=== PATIENT | female | born 1960 | race Caucasian/White ===

== ENCOUNTER 2020-05-06 08:08 | Inpatient (IN) | payer MEDICAID ==
[~2020-05-06] VITALS: Ht 160 cm; Wt 75.0 kg
[~2020-05-06 08:08] MED LIST: ALBU8HFA PO; AMIT-189 PO; OMEP20CA15 PO; STOOL SOFTNER
[2020-05-06] MEDS ORDERED: CefTRIAXone 2gm/D5W 50ml 50 ML IV ONE (08:55)
[2020-05-06] MEDS ORDERED: normal saline 1000ML IV soln IV ONE (08:55)
[2020-05-06] MEDS ORDERED: CefTRIAXone inj 2,000 MG in normal saline 100ml IV soln 100 ML IV ONE (09:05)
[2020-05-06 09:16] LABS: BASOPHILS % (AUTO) 0.2 % (0-1); EOSINOPHILS % (AUTO) 0.3 % (0-6); HEMATOCRIT 37.7 % (35.0-45.0); HEMOGLOBIN 12.4 g/dl (12.0-16.0); LYMPHOCYTES # (AUTO) 0.3 X10'3 (1.1-4.8); LYMPHOCYTES % (AUTO) 3.3 % (21-51); MEAN CORPUSCULAR HEMOGLOBIN 27.4 PG (27.0-31.0); MEAN CORPUSCULAR HGB CONC 32.8 g/dL (33.0-36.5); MEAN CORPUSCULAR VOLUME 83.6 FL (78-98); MEAN PLATELET VOLUME 6.5 FL (7.4-10.4); MONOCYTES % (AUTO) 0.2 % (2-12); NEUTROPHILS # (AUTO) 8.3 X10'3 (1.8-7.7); PLATELET COUNT 554 X10'3 (140-440); RED BLOOD COUNT 4.51 X10'6 (4.20-5.60); WHITE BLOOD COUNT 8.6 X10'3 (4.5-11.0)
[2020-05-06 09:44] LABS: ALANINE AMINOTRANSFERASE 70 U/L (12-78); ALBUMIN 3.4 G/DL (3.4-5.0); ALBUMIN/GLOBULIN RATIO 0.7 (1.1-1.5); ALKALINE PHOSPHATASE 217 IU/L (46-116); ANION GAP 13 (8-16); ASPARTATE AMINO TRANSFERASE 68 U/L (10-37); BILIRUBIN,TOTAL 0.6 MG/DL (0.1-1.0); BLOOD UREA NITROGEN 13 MG/DL (7-18); BUN/CREATININE RATIO 8.8 (6.6-38.0); CALCIUM 9.5 MG/DL (8.5-10.1); CHLORIDE 101 MMOL/L (99-107); CREATININE 1.48 MG/DL (0.40-0.90); GLUCOSE 107 MG/DL (70-104); POTASSIUM 3.4 MMOL/L (3.5-5.1); SODIUM 137 MMOL/L (135-145); TOTAL CARBON DIOXIDE 22.6 MMOL/L (24-32); TOTAL PROTEIN 8.6 G/DL (6.4-8.2); eGFR 36 ML/MIN
[2020-05-06] MEDS ORDERED: iohexol 300mg/ml 100ml inj. ONE (10:22)
[2020-05-06 11:04] LABS: CLARITY,URINE SLIGHTLY CLOUDY (Clear); COLOR,URINE YELLOW (Yellow); GLUCOSE, URINE NEGATIVE (Neg); KETONES,URINE TRACE mg/dl (Neg); LEUKOCYTE ESTERASE ,URINE MODERATE (Neg); NITRITES, URINE NEGATIVE (Neg); OCCULT BLOOD,URINE NEGATIVE (Neg); PH,URINE 5.5 (4.8-8.0); PROTEIN,URINE 30 mg/dl (Neg); UROBILINOGEN,URINE 0.2 E.U/dL (0.2-1.0)
[2020-05-06 11:09] LABS: UA COLLECTION TYPE VOIDED
[2020-05-06 11:10] LABS: URINE HCG NEGATIVE (NEG)
[2020-05-06] MEDS ORDERED: ketorolac tromethamine 15mg/ml inj. IV ONE ×2 (11:10→23:40)
[2020-05-06] MEDS ORDERED: acetaminophen 325mg tablet PO ONE (11:10)
[2020-05-06 11:11] LABS: BACTERIA,URINE FEW /HPF (Neg); MUCUS STRANDS FEW /LPF (Neg); RBC,URINE 0-2 /HPF (0-2); SQUAMOUS EPITHELIAL CELL,UR MANY /LPF (FEW); WBC,URINE 20-30 /HPF (0-4)
[2020-05-06 12:11] LABS: URINE AMPHETAMINE SCREEN NEGATIVE (Neg); URINE BARBITUATE SCREEN NEGATIVE (Neg); URINE BENZODIAZEPINES SCREEN NEGATIVE (Neg); URINE CANNABINOID SCREEN NEGATIVE (Neg); URINE COCAINE SCREEN NEGATIVE (Neg); URINE METHADONE SCREEN NEGATIVE (Neg); URINE OPIATE SCREEN NEGATIVE (Neg); URINE PHENCYCLIDINE SCREEN NEGATIVE (Neg)
[2020-05-06] MEDS ORDERED: CETI-90 PO (12:13)
[2020-05-06] MEDS ORDERED: FLUT100D2 IH (12:13)
[2020-05-06] MEDS ORDERED: FLUT16SP2 BOTHNARES (12:13)
[2020-05-06] MEDS ORDERED: AMIT-189 PO (12:13)
[2020-05-06] MEDS ORDERED: magnesium 2GM in 50ml NS 50 ML IV PRN (13:05)
[2020-05-06] MEDS ORDERED: acetaminophen 325mg tablet PO PRN ×2 (13:05)
[2020-05-06] MEDS ORDERED: potassium Cl 20 mEq SR tablet PO PRN ×2 (13:05)
[2020-05-06] MEDS ORDERED: magnesium 4gm in 100ml NS 100 ML IV PRN (13:05)
[2020-05-06] MEDS ORDERED: magnesium Cl slow-release 64mg tablet PO PRN (13:05)
[2020-05-06] MEDS ORDERED: HYDROcodone/acetaminophen 10/325mg tab PO PRN (13:05)
[2020-05-06] MEDS ORDERED: ondansetron/PF 4mg/2ml inj IV PRN (13:05)
[2020-05-06] MEDS ORDERED: potassium CL 10mEq/100ml bag 100 ML IV PRN ×2 (13:05)
[2020-05-06] MEDS ORDERED: magnesium hydroxide 30ml (MOM) UD suspension PO PRN (13:05)
[2020-05-06] MEDS ORDERED: bisacodyl 10mg suppository rectal RC PRN (13:05)
[2020-05-06] MEDS ORDERED: mag hydrox/Alum hydrox/simeth 30ml oral suspension PO PRN (13:05)
[2020-05-06] MEDS ORDERED: HYDROcodone/acetaminophen 5mg/325mg tablet PO PRN (13:05)
[2020-05-06] MEDS ORDERED: HYDROmorphone inj. 0.5 MG/0.5 ML DISP.SYRIN IV PRN (13:05)
[2020-05-06] MEDS ORDERED: HYDROmorphone 1 mg/ml syringe IV PRN (13:05)
[2020-05-06] MEDS ORDERED: vancomycin/NS 1 GM ADD-VANTAGE 250 ML X 1 DOSE IV SCH (13:16)
--- NOTE | 2020-05-06 13:23 | NUR ---
Attempted to call report to [facility], primary rn and set up and charger on lunch; relief charge unable/willing to take report. Primary RN due back in ~ 10 minutes. DEVIN Wayne notified.
--- NOTE | 2020-05-06 13:36 | NUR ---
2nd attempt to call report. Primary RN and flight engineer manager still on lunch; none available to take report. DEVIN aprised.
[2020-05-06 14:25] VITALS: BP 102/62
[2020-05-06] MEDS: normal saline 1000ml 1,000 ML IV SCH ×2 (14:29→23:34)
[2020-05-06] MEDS ORDERED: UMEC1DIS PO (14:48)
[2020-05-06] MEDS: heparin, porcine 5000 units/ml vial SQ SCH ×2 (15:47→23:47)
[2020-05-06] MEDS: fluticasone nasal spray 16GM bottle NS SCH (16:56)
[2020-05-06] MEDS: Umeclidinium Brm/Vilanterol Tr (Anoro Ellipta 62.5-25 Mcg INH PO SCH (17:04)
[2020-05-06 18:00] VITALS: BP 123/72
--- NOTE | 2020-05-06 18:11 | NUR ---
Problems reprioritized. Patient report given, questions answered & plan of care reviewed with Merlin RICE.
[2020-05-06] MEDS: K and/or MAG REPLACEMENT MC SCH (20:00)
[2020-05-06] MEDS ORDERED: temazepam 15mg capsule PO PRN (21:00)
[2020-05-06] MEDS: amitriptyline 25mg tablet PO SCH (21:36)
[2020-05-06] MEDS: cetirizine 10mg tablet PO SCH (21:37)
[2020-05-06] MEDS ORDERED: pantoprazole 40mg Tablet.DR PO ONE (21:45)
[2020-05-07] VITALS: BP 111/67
[2020-05-07 05:57] LABS: BASOPHILS # (AUTO) 0.1 X10'3 (0-0.2); BASOPHILS % (AUTO) 0.4 % (0-1); EOSINOPHILS % (AUTO) 0.3 % (0-6); HEMATOCRIT 29.7 % (35.0-45.0); HEMOGLOBIN 9.5 g/dl (12.0-16.0); LYMPHOCYTES # (AUTO) 0.9 X10'3 (1.1-4.8); LYMPHOCYTES % (AUTO) 5.8 % (21-51); MEAN CORPUSCULAR HGB CONC 32.1 g/dL (33.0-36.5); MEAN PLATELET VOLUME 6.9 FL (7.4-10.4); MONOCYTES # (AUTO) 0.5 X10'3 (0-0.9); MONOCYTES % (AUTO) 3.5 % (2-12); NEUTROPHILS # (AUTO) 13.9 X10'3 (1.8-7.7); PLATELET COUNT 448 X10'3 (140-440); RED BLOOD COUNT 3.54 X10'6 (4.20-5.60); RED CELL DISTRIBUTION WIDTH 14.6 % (11.5-14.5); WHITE BLOOD COUNT 15.4 X10'3 (4.5-11.0)
--- NOTE | 2020-05-07 06:08 | NUR ---
Patient in room [facility]. I have received report from Merlin RICE and had the opportunity to ask questions and assume patient care. No changes reported on patient.
[2020-05-07 06:32] LABS: ALANINE AMINOTRANSFERASE 82 U/L (12-78); ALBUMIN 2.3 G/DL (3.4-5.0); ALBUMIN/GLOBULIN RATIO 0.6 (1.1-1.5); ALKALINE PHOSPHATASE 209 IU/L (46-116); ANION GAP 10 (8-16); ASPARTATE AMINO TRANSFERASE 123 U/L (10-37); BILIRUBIN,TOTAL 0.3 MG/DL (0.1-1.0); BLOOD UREA NITROGEN 12 MG/DL (7-18); BUN/CREATININE RATIO 11.5 (6.6-38.0); CALCIUM 8.1 MG/DL (8.5-10.1); CHLORIDE 108 MMOL/L (99-107); CREATININE 1.04 MG/DL (0.40-0.90); GLUCOSE 94 MG/DL (70-104); MAGNESIUM 2.1 MG/DL (1.5-2.4); POTASSIUM 3.8 MMOL/L (3.5-5.1); SODIUM 141 MMOL/L (135-145); TOTAL CARBON DIOXIDE 22.9 MMOL/L (24-32); TOTAL PROTEIN 6.3 G/DL (6.4-8.2); eGFR 54 ML/MIN
[2020-05-07] MEDS: K and/or MAG REPLACEMENT MC SCH ×2 (06:49→20:00)
[2020-05-07] MEDS: CefTRIAXone/D5W-Rocephin 1gm 50 ML IV SCH (07:37)
[2020-05-07] MEDS: heparin, porcine 5000 units/ml vial SQ SCH ×2 (07:38→15:21)
[2020-05-07] MEDS: normal saline 1000ml 1,000 ML IV SCH ×2 (07:39→19:40)
[2020-05-07] MEDS ORDERED: fluticasone nasal spray 16GM bottle NS SCH (08:00)
[2020-05-07] MEDS ORDERED: Umeclidinium Brm/Vilanterol Tr (Anoro Ellipta 62.5-25 Mcg INH PO SCH (08:00)
[2020-05-07 08:50] VITALS: BP 116/64
[2020-05-07] MEDS ORDERED: HYDROcodone/acetaminophen 5mg/325mg tablet PO PRN (11:55)
[2020-05-07] MEDS ORDERED: vancomycin/NS 1 GM ADD-VANTAGE 250 ML X 1 DOSE IV SCH ×2 (13:00→21:10)
[2020-05-07] MEDS: diphenhydrAMINE 25mg capsule PO PRN ×3 (13:09→22:14)
[2020-05-07 13:49] VITALS: BP 143/70
[2020-05-07] MEDS: fluticasone nasal spray 16GM bottle NS SCH (16:17)
[2020-05-07] MEDS: Umeclidinium Brm/Vilanterol Tr (Anoro Ellipta 62.5-25 Mcg INH PO SCH (16:18)
[2020-05-07] MEDS: HYDROcodone/acetaminophen 10/325mg tab PO PRN ×2 (17:49→22:14)
[2020-05-07 17:55] LABS: CLARITY,URINE CLEAR (Clear); COLOR,URINE STRAW (Yellow); GLUCOSE, URINE NEGATIVE (Neg); KETONES,URINE NEGATIVE (Neg); LEUKOCYTE ESTERASE ,URINE NEGATIVE (Neg); NITRITES, URINE NEGATIVE (Neg); OCCULT BLOOD,URINE NEGATIVE (Neg); PROTEIN,URINE NEGATIVE (Neg); UROBILINOGEN,URINE 0.2 E.U/dL (0.2-1.0)
[2020-05-07 17:57] LABS: UA COLLECTION TYPE NON-SPECIFIED
[2020-05-07 19:47] VITALS: BP 144/81
[2020-05-07] MEDS: pantoprazole 40mg Tablet.DR PO SCH (20:12)
[2020-05-07] MEDS: amitriptyline 25mg tablet PO SCH (20:12)
[2020-05-07] MEDS: cetirizine 10mg tablet PO SCH (20:12)
[2020-05-07] MEDS: lactobacillus rhamnosus 10,000 MMU CELLS/CAPSULE PO SCH (20:12)
[2020-05-07 23:00] VITALS: BP 146/84
[2020-05-08] VITALS: BP 148/79
[2020-05-08] MEDS: heparin, porcine 5000 units/ml vial SQ SCH ×3 (00:37→16:10)
[2020-05-08] MEDS: diphenhydrAMINE 25mg capsule PO PRN ×4 (02:20→16:26)
[2020-05-08] MEDS: HYDROcodone/acetaminophen 10/325mg tab PO PRN ×4 (02:20→16:24)
[2020-05-08 05:10] LABS: BASOPHILS # (AUTO) 0.1 X10'3 (0-0.2); BASOPHILS % (AUTO) 0.6 % (0-1); EOSINOPHILS # (AUTO) 0.1 X10'3 (0-0.9); EOSINOPHILS % (AUTO) 0.4 % (0-6); HEMATOCRIT 27.5 % (35.0-45.0); LYMPHOCYTES # (AUTO) 1.8 X10'3 (1.1-4.8); LYMPHOCYTES % (AUTO) 12.3 % (21-51); MEAN CORPUSCULAR HEMOGLOBIN 27.2 PG (27.0-31.0); MEAN CORPUSCULAR HGB CONC 32.8 g/dL (33.0-36.5); MEAN PLATELET VOLUME 7.1 FL (7.4-10.4); MONOCYTES # (AUTO) 0.8 X10'3 (0-0.9); MONOCYTES % (AUTO) 5.1 % (2-12); NEUTROPHILS # (AUTO) 12.2 X10'3 (1.8-7.7); NEUTROPHILS % (AUTO) 81.6 % (42-75); PLATELET COUNT 433 X10'3 (140-440); RED BLOOD COUNT 3.31 X10'6 (4.20-5.60); RED CELL DISTRIBUTION WIDTH 14.4 % (11.5-14.5); WHITE BLOOD COUNT 14.9 X10'3 (4.5-11.0)
[2020-05-08] MEDS: normal saline 1000ml 1,000 ML IV SCH ×2 (05:36→19:49)
[2020-05-08 05:41] LABS: ALANINE AMINOTRANSFERASE 89 U/L (12-78); ALBUMIN 2.3 G/DL (3.4-5.0); ALBUMIN/GLOBULIN RATIO 0.6 (1.1-1.5); ALKALINE PHOSPHATASE 236 IU/L (46-116); ANION GAP 11 (8-16); ASPARTATE AMINO TRANSFERASE 70 U/L (10-37); BILIRUBIN,TOTAL 0.2 MG/DL (0.1-1.0); BLOOD UREA NITROGEN 6 MG/DL (7-18); BUN/CREATININE RATIO 7.5 (6.6-38.0); CALCIUM 7.9 MG/DL (8.5-10.1); CHLORIDE 107 MMOL/L (99-107); GLUCOSE 94 MG/DL (70-104); MAGNESIUM 2.1 MG/DL (1.5-2.4); POTASSIUM 3.5 MMOL/L (3.5-5.1); SODIUM 140 MMOL/L (135-145); TOTAL PROTEIN 6.4 G/DL (6.4-8.2); eGFR 73 ML/MIN
--- NOTE | 2020-05-08 06:34 | NUR ---
I have received report from Merlin RICE and had the opportunity to ask questions and assume patient care.
[2020-05-08] MEDS: lactobacillus rhamnosus 10,000 MMU CELLS/CAPSULE PO SCH ×2 (07:25→19:49)
[2020-05-08] MEDS: CefTRIAXone/D5W-Rocephin 1gm 50 ML IV SCH (07:26)
[2020-05-08 07:37] VITALS: BP 106/58
[2020-05-08] MEDS: K and/or MAG REPLACEMENT MC SCH ×2 (08:00→19:42)
[2020-05-08] MEDS ORDERED: albuterol 2.5 MG/3 ML nebule NEB PRN (09:10)
[2020-05-08] MEDS ORDERED: ipratropium 0.5 MG/2.5ML nebule IH PRN (09:10)
[2020-05-08 12:00] VITALS: BP 111/57
[2020-05-08] MEDS ORDERED: VANCOMYCIN LEVEL IV ONE (12:30)
--- NOTE | 2020-05-08 12:30 | NUR ---
Patient off the unit to MRI and ERCP.
--- NOTE | 2020-05-08 14:39 | NUR ---
Pharmacy called, states not to give Vanco dose at 1300, changing dose.
[2020-05-08] MEDS: vancomycin/NS 1 GM ADD-VANTAGE 250 ML IV SCH (15:08)
[2020-05-08] MEDS: fluticasone nasal spray 16GM bottle NS SCH (16:10)
--- NOTE | 2020-05-08 18:12 | NUR ---
Problems reprioritized. Patient report given, questions answered & plan of care reviewed with Merlin RICE.
[2020-05-08 19:42] VITALS: BP 120/74
[2020-05-08] MEDS: docusate sod 100mg capsule PO SCH (19:49)
[2020-05-08] MEDS: pantoprazole 40mg Tablet.DR PO SCH (20:00)
[2020-05-08] MEDS: amitriptyline 25mg tablet PO SCH (20:00)
[2020-05-08] MEDS: cetirizine 10mg tablet PO SCH (20:00)
[2020-05-08] MEDS: ketorolac tromethamine 15mg/ml inj. IV PRN (22:37)
[2020-05-09] VITALS: BP 132/73
[2020-05-09] MEDS: normal saline 1000ml 1,000 ML IV SCH ×2 (01:02→11:02)
[2020-05-09] MEDS ORDERED: VANCOMYCIN LEVEL IV ONE (02:30)
[2020-05-09] MEDS: vancomycin/NS 1 GM ADD-VANTAGE 250 ML IV SCH (02:42)
[2020-05-09] MEDS: heparin, porcine 5000 units/ml vial SQ SCH ×3 (02:42→07:55)
[2020-05-09 02:53] LABS: BASOPHILS # (AUTO) 0.1 X10'3 (0-0.2); BASOPHILS % (AUTO) 0.7 % (0-1); EOSINOPHILS # (AUTO) 0.2 X10'3 (0-0.9); EOSINOPHILS % (AUTO) 2.2 % (0-6); HEMOGLOBIN 9.1 g/dl (12.0-16.0); LYMPHOCYTES # (AUTO) 1.8 X10'3 (1.1-4.8); LYMPHOCYTES % (AUTO) 16.8 % (21-51); MEAN CORPUSCULAR HEMOGLOBIN 26.9 PG (27.0-31.0); MEAN CORPUSCULAR HGB CONC 32.4 g/dL (33.0-36.5); MEAN CORPUSCULAR VOLUME 83.1 FL (78-98); MEAN PLATELET VOLUME 6.7 FL (7.4-10.4); MONOCYTES # (AUTO) 0.5 X10'3 (0-0.9); MONOCYTES % (AUTO) 4.9 % (2-12); NEUTROPHILS % (AUTO) 75.4 % (42-75); PLATELET COUNT 435 X10'3 (140-440); RED BLOOD COUNT 3.36 X10'6 (4.20-5.60); RED CELL DISTRIBUTION WIDTH 14.5 % (11.5-14.5); WHITE BLOOD COUNT 10.6 X10'3 (4.5-11.0)
[2020-05-09 03:05] LABS: ALANINE AMINOTRANSFERASE 66 U/L (12-78); ALBUMIN 2.4 G/DL (3.4-5.0); ALBUMIN/GLOBULIN RATIO 0.6 (1.1-1.5); ALKALINE PHOSPHATASE 231 IU/L (46-116); ANION GAP 9 (8-16); ASPARTATE AMINO TRANSFERASE 36 U/L (10-37); BILIRUBIN,TOTAL 0.3 MG/DL (0.1-1.0); BLOOD UREA NITROGEN 5 MG/DL (7-18); BUN/CREATININE RATIO 5.9 (6.6-38.0); CALCIUM 8.3 MG/DL (8.5-10.1); CHLORIDE 108 MMOL/L (99-107); CREATININE 0.85 MG/DL (0.40-0.90); GLUCOSE 93 MG/DL (70-104); POTASSIUM 3.3 MMOL/L (3.5-5.1); SODIUM 141 MMOL/L (135-145); TOTAL CARBON DIOXIDE 24.4 MMOL/L (24-32); TOTAL PROTEIN 6.6 G/DL (6.4-8.2); eGFR 68 ML/MIN
[2020-05-09 03:06] LABS: MAGNESIUM 2.1 MG/DL (1.5-2.4); VANCOMYCIN,TROUGH 12.8 UG/ML (6.0-14.0)
[2020-05-09 07:30] VITALS: BP 119/67
[2020-05-09] MEDS: K and/or MAG REPLACEMENT MC SCH (07:44)
[2020-05-09] MEDS: docusate sod 100mg capsule PO SCH ×2 (07:44→07:54)
[2020-05-09] MEDS: lactobacillus rhamnosus 10,000 MMU CELLS/CAPSULE PO SCH ×2 (07:44→07:54)
[2020-05-09] MEDS: CefTRIAXone/D5W-Rocephin 1gm 50 ML IV SCH (07:56)
[2020-05-09] MEDS: ketorolac tromethamine 15mg/ml inj. IV PRN (08:01)
[2020-05-09 11:15] LABS: HBSAG SCREEN Negative (Negative); HEP A AB, IGM Negative (Negative); HEPATITIS C ANTIBODY <0.1 s/co ratio (0.0-0.9)
[2020-05-09 11:34] VITALS: BP 133/54
[2020-05-09 11:35] VITALS: BP 137/86
[2020-05-09] MEDS ORDERED: CEFD300C3 PO (13:42)
--- NOTE | 2020-05-09 14:11 | NUR ---
PATIENT STABLE AND APPROPRIATE FOR DISCHARGE HOME WITH FAMILY. IV REMOVED, ALL BELONGINGS TAKEN FROM ROOM. HOME MEDICATIONS PICKED UP FROM PHARMACY. NEW PRESCRIPTIONS TRANSMITTED TO [facility]. DISCHARGE INSTRUCTIONS GIVEN AND REVIEWED WITH PATIENT, ALL QUESTIONS ANSWERED.
[2020-05-09] MEDS ORDERED: VANCOmycin 1250MG/NS 250ml Bag 250 ML IV SCH (15:00)
[2020-05-11] MEDS ORDERED: VANCOMYCIN LEVEL IV ONE (02:30)
== END 2020-05-09 13:57 | disposition home or self-care (01) | DRG 463 ==
LOC: ER 08:08 → ED HOLD 13:02 → SUR 3N 13:56
PROVIDERS: ADMIT Family Medicine; ATTEND Family Medicine
DX: N39.0 Urinary tract infection, site not specified (principal); D64.9 Anemia, unspecified; E03.9 Hypothyroidism, unspecified; E78.5 Hyperlipidemia, unspecified; N17.9 Acute kidney failure, unspecified; Z20.828 Contact with and (suspected) exposure to other viral communicable diseases; Z87.11 Personal history of peptic ulcer disease; Z88.5 Allergy status to narcotic agent; Z88.8 Allergy status to other drugs, medicaments and biological substances; F32.9 Major depressive disorder, single episode, unspecified; R60.9 Edema, unspecified
CPT/HCPCS: 36415; 71045; 72146; 72148; 72195; 74176; 76700; 80053; 80074; 80202; 80305; 81001; 81003; 81025; 83605; 83735; 84145; 85025; 87040; 87081; 87635; 93005; 94760; 96365; 99285; G0378; J0696; J1644; J1885; J3370; J7030; Q0163; Q9967